=== PATIENT | female | born 1955 | race Asian ===

== ENCOUNTER 2020-05-30 04:20 | Day surgery (SDC) | payer OTHER ==
[2020-05-29 13:09] VITALS: BMI 24.2
[2020-05-30] MEDS ORDERED: PROPOFOL 20 ML ONE ×2 (09:24)
[2020-05-30] MEDS ORDERED: SUCCINYLCHOLINE CHLORIDE 200 MG/10 ML SYRINGE ONE (09:25)
[2020-05-30] MEDS ORDERED: KETOROLAC TROMETHAMINE 30 MG/1 ML VIAL ONE (09:27)
[2020-05-30] MEDS ORDERED: GENTAMICIN SO4 80 MG/2 ML VIAL ONE (09:27)
[2020-05-30] MEDS ORDERED: LIDOCAINE HCL 2% JELLY (5 ML/TUBE) ONE (09:27)
[2020-05-30] MEDS ORDERED: DEXAMETHASONE SOD PHOSPHATE 4 MG/1 ML VIAL ONE (09:27)
[2020-05-30] MEDS ORDERED: ceFAZolin SODIUM 1 GM VIAL ONE (09:27)
[2020-05-30] MEDS ORDERED: ceFAZolin SODIUM 1 GM VIAL IVPB ONE (09:43)
[2020-05-30] MEDS ORDERED: GENTAMICIN 80MG PREMIX BAG IVPB ONE (09:43)
[2020-05-30] MEDS ORDERED: FUROSEMIDE 40 MG/4 ML INJECTABLE VIAL ONE (10:03)
[2020-05-30] MEDS ORDERED: DEXTROSE 5%-0.45% SALINE 1,000 ML IV SCH (10:45)
[2020-05-30] MEDS ORDERED: ONDANSETRON 4 MG/2 ML VIAL IVPUSH PRN (10:50)
[2020-05-30] MEDS ORDERED: oxyCODONE HCL 5 MG TABLET PO PRN (10:50)
[2020-05-30] MEDS ORDERED: oxyCODONE HCL 5 MG TABLET ONE (12:15)
[2020-05-30 13:23] VITALS: BP 151/70; PULSE 84; TEMP 98.6
== END 2020-05-30 13:30 | disposition home or self-care (01) ==
LOC: JASU-SURG 04:20
PROVIDERS: ATTEND Urology
PROC: 0TF48ZZ Fragmentation in Left Kidney Pelvis, Via Natural or Artificial Opening Endoscopic (ICD-10-PCS; principal; 2020-05-30 10:00)
PROC: 0T778DZ Dilation of Left Ureter with Intraluminal Device, Via Natural or Artificial Opening Endoscopic (ICD-10-PCS; 2020-05-30 10:00)
DX: N20.0 Calculus of kidney (principal)
CPT/HCPCS: 36415; 76000-TC-FY; 82360; 94760